=== PATIENT | female | born 1970 | race Caucasian/White ===

== ENCOUNTER 2019-11-16 22:11 | Emergency (ER) | payer OTHER ==
[2019-11-16] MEDS ORDERED: HYDROCODONE/ACETAMINOPHEN 5-325 MG TABLET PO ONE (22:37)
--- NOTE | 2019-11-16 22:51 | ER Document Report ---
Entered by KRYSTIN LAWRENCE SCRIBE 11/16/19 2371 Acting as scribe for:NIGEL PRATHER DO ED Fall - General Chief Complaint: Fall Stated Complaint: FALL/ARM PAIN Time Seen by Provider: 11/16/19 22:21 Information source: Patient Notes: This 49 year old female patient presents to the emergency department today with left shoulder pain from a fall prior to arrival. Patient states she tripped over her daughter's Husky and hurt her left shoulder. Patient states there is pain if she tries to move her left shoulder. Patient states she did not hit her head or lose consciousness. Patient denies any neck pain. - Related data Allergies/Adverse Reactions: No Known Allergies Allergy (Unverified 11/16/19 22:23) Past Medical History - General Information source: Patient - Social History Smoking Status: Unknown if Ever Smoked Family History: Reviewed & Not Pertinent Past Surgical History: Reports: Hx Hysterectomy Review of Systems - Review of Systems Constitutional: No symptoms reported EENT: No symptoms reported Cardiovascular: No symptoms reported Respiratory: No symptoms reported Gastrointestinal: No symptoms reported Genitourinary: No symptoms reported Female Genitourinary: No symptoms reported Musculoskeletal: See HPI, Other - Left shoulder pain. denies: Neck pain Skin: No symptoms reported Hematologic/Lymphatic: No symptoms reported Neurological/Psychological: See HPI. denies: Lost consciousness -: Yes All other systems reviewed and negative Physical Exam - Vital signs Vitals: Temp 97.8 F 11/16/19 22:12 - General General appearance: Alert In distress: Mild - HEENT Head: Normocephalic, Atraumatic Eyes: Normal Pupils: PERRL Neck: Normal - Respiratory Respiratory status: No respiratory distress Chest status: Nontender Breath sounds: Normal Chest palpation: Normal - Cardiovascular Rhythm: Regular Heart sounds: Normal auscultation Murmur: No - Abdominal Inspection: Obese Distension: No distension Bowel sounds: Normal Tenderness: Nontender - Extremities General lower extremity: No: Edema Wrist: Normal - Left. Normal ROM. Hand: Normal - Left Knee: Other - Abrasion on the left knee. Normal ROM. Notes: Left arm is held close to chest. Tenderness with movement of left arm being externally rotated. Limited ROM. Tenderness with palpation to the anterior and posterior left shoulder. No deformity. - Neurological Neuro grossly intact: Yes Cognition: Normal Orientation: AAOx4 - Psychological Associated symptoms: Normal affect, Normal mood - Skin Skin Temperature: Warm Skin Moisture: Dry Skin Color: Normal Course - Vital Signs Vital signs: Temp Pulse Resp BP Pulse Ox 97.8 F 73 18 135/76 H 96 11/16/19 22:15 11/16/19 22:15 11/16/19 22:15 11/16/19 22:15 11/16/19 22:15 Discharge - Discharge Clinical Impression: Greater tuberosity of humerus fracture Qualifiers: Encounter type: initial encounter Fracture type: closed Fracture alignment: nondisplaced Laterality: left Qualified Code(s): S42.255A - Nondisplaced fracture of greater tuberosity of left humerus, initial encounter for closed fracture Condition: Stable Disposition: HOME, SELF-CARE Instructions: Shoulder Injury ([facility]), Fracture ([facility]) Additional Instructions: Rest, wear your sling. Ice to your shoulder. Take pain medicine as needed but do not drive or operate machinery while taking this medicine. Referrals: HENRY MITCHELL MD [ACTIVE PROVISIONAL STAFF] - Follow up as needed I personally performed the services described in the documentation, reviewed and edited the documentation which was dictated to the scribe in my presence, and it accurately records my words and actions.
--- NOTE | 2019-11-17 00:14 | RADIOLOGY REPORT (SQ) ---
EXAM DESCRIPTION: XR SHOULDER 2 OR MORE VIEWS COMPLETED DATE/TME: 11/16/2019 22:38 CLINICAL HISTORY: 49 years Female, left shoulder pain/ fall COMPARISON: None. Findings: Small cortical nondisplaced fracture-defect of the greater tuberosity of the left humeral head. Bones, joints, and soft tissues of the LEFT XR SHOULDER 2 OR MORE VIEWS appear otherwise unremarkable. IMPRESSION: Small cortical nondisplaced fracture-defect of the greater tuberosity of the left humeral head.
[2019-11-17] MEDS ORDERED: HYDROCODONE/ACETAMINOPHEN 5-325 MG (6 TAB/ER DISP) PO PRN (00:23)
[2019-11-17 00:39] VITALS: BP 143/93
== END 2019-11-17 00:40 | disposition home or self-care (01) ==
LOC: ER 22:11
DX: S42.255A Nondisplaced fracture of greater tuberosity of left humerus, initial encounter for closed fracture (principal); M25.512 Pain in left shoulder; W19.XXXA Unspecified fall, initial encounter
CPT/HCPCS: 99283